=== PATIENT | female | born 1965 | race Caucasian/White ===

== ENCOUNTER 2017-12-03 14:57 | Emergency (ER) | payer BC ==
[~2017-12-03] VITALS: Ht 165.1 cm; Wt 72.5 kg
[2017-12-03 15:03] VITALS: BP 105/68
[2017-12-03] MEDS ORDERED: MOTRIN600 MG PO (16:22)
== END 2017-12-03 16:53 | disposition home or self-care (01) ==
LOC: EME 14:57
DX: S93.602A Unspecified sprain of left foot, initial encounter (principal); W10.1XXA Fall (on)(from) sidewalk curb, initial encounter; E05.00 Thyrotoxicosis with diffuse goiter without thyrotoxic crisis or storm
CPT/HCPCS: 73610; 73630; 99281; 99284